=== PATIENT | female | born 1995 | race Caucasian/White ===

== ENCOUNTER → 2017-07-27 12:32 | Outpatient (CLI) | payer MEDICAID ==
[2017-07-27 13:42] LABS: BASOPHILS 0.1 % (0-2); EOSINOPHILS 0.9 % (0-7); HEMATOCRIT 29.7 % (36.0-48.0); HEMOGLOBIN 9.6 g/dL (12-16); IMMATURE GRANULOCYTES 0.6 % (0-5); LYMPHOCYTES 5.3 % (15-50); MCH 26.2 pg (26.0-34.0); MCHC 32.3 g/dL (31.0-37.0); MCV 81.1 fL (80.0-100.0); MEAN PLATELET VOLUME 10.3 fL (7.4-10.4); NEUTROPHILS 84.1 % (40-80); PLATELET COUNT 181 10x3/uL (130-400); RBC 3.66 10x6/uL (4.00-5.40); RDW 13.3 % (11.5-14.5); WBC 8.9 10x3/uL (4.8-10.8)
== END | disposition home or self-care (01) ==
LOC: D.LDO 12:32
PROVIDERS: Obstetrics & Gynecology
DX: O26.892 Other specified pregnancy related conditions, second trimester (principal); Z3A.25 25 weeks gestation of pregnancy; R42 Dizziness and giddiness; R11.0 Nausea

== ENCOUNTER 2017-07-28 17:39 | Outpatient (CLI) | payer MEDICAID ==
[2017-07-28 18:54] LABS: APPEARANCE HAZY (CLEAR); BILIRUBIN NEGATIVE (NEGATIVE); COLOR YELLOW (YELLOW); GLUCOSE NEGATIVE (NEGATIVE); KETONE NEGATIVE (NEGATIVE); NITRITE NEGATIVE (NEGATIVE); PROTEIN NEGATIVE (NEGATIVE); UROBILINOGEN NORMAL (NORMAL)
[2017-07-28 18:55] LABS: RED CELLS - URINE OCC /hpf (0-5); WHITE CELLS - URINE 0-5 /hpf (0-5)
[2017-07-28 18:56] LABS: BACTERIA MANY /hpf (NONE SEEN); MUCUS <1+ /lpf (NONE SEEN)
== END 2017-07-28 19:35 | disposition home or self-care (01) ==
LOC: D.LDO 17:39
PROVIDERS: Obstetrics & Gynecology
DX: O26.892 Other specified pregnancy related conditions, second trimester (principal); Z3A.24 24 weeks gestation of pregnancy

== ENCOUNTER 2017-10-31 09:03 | Inpatient (IN) | payer MEDICAID ==
[~2017-10-31] VITALS: Ht 149.9 cm; Wt 64.4 kg
--- NOTE | ~2017-10-31 | OP ---
PATIENT NAME: CHRIS REEDER MEDICAL RECORD: [id number] :89 LOCATION:[facility] ADMISSION DATE:10/31/17 SURGEON: ANTHONY GLEASON MD DATE OF OPERATION: 11/02/2017 DELIVERY NOTE PREDELIVERY DIAGNOSIS: at term. POSTDELIVERY DIAGNOSIS: Mother delivered at term. PROCEDURE PERFORMED: Induction of labor with vaginal delivery. ATTENDING: Anthony Gleason MD ANESTHESIA: Continuous lumbar epidural. FINDINGS: Viable male in NEAL presentation, Apgars 9 and 9, weight 7 pounds 8 ounces. First degree laceration with 3-0 chromic repair. Placenta spontaneous and intact. ESTIMATED BLOOD LOSS: 400 cc. DISPOSITION: Mother and recovered in the room. TRANSINT:[id number] Voice Confirmation ID: [id number] DOCUMENT ID: [id number] ANTHONY GLEASON MD at 1158 CC: [id number] DICTATION DATE: 11/02/172014 [employer]: 11/02/17 2246 DIS IN 11/03/17 [facility] [address] [place] [address]
--- NOTE | ~2017-10-31 | DS ---
PATIENT:CHRIS REEDER :89 MEDICAL RECORD: [id number] DISCHARGE SUMMARY ADMISSION DATE: 10/31/17 DISCHARGE DATE: 11/03/17 DATE OF ADMISSION: 10/31/2017. DATE OF DISCHARGE: 11/03/2017. ADMISSION DIAGNOSIS: at term. DISCHARGE DIAGNOSIS: Mother delivered at term. PROCEDURE: Induction of labor with vaginal delivery. ATTENDING: Xavi Islas MD HISTORY OF PRESENT ILLNESS: See the H&P in the chart. SUMMARY OF HOSPITALIZATION: The patient was admitted to the hospital and underwent induction of labor. After initial day of Pitocin, it was stopped. The patient was redosed with misoprostol. On the second day of Pitocin, she went on to deliver vaginally. The patient has done well with minimal lochia and has adequate pain control at discharge. The patient has been counseled and is currently and will be using condoms for control at this time. The patient will follow up in 6 weeks. TRANSINT:[id number] Voice Confirmation ID: [id number] DOCUMENT ID: [id number] XAVI ISLAS MD at 1158 CC: [id number] DICTATION DATE: 11/03/17 1513 [employer]: 11/04/17 1056 DIS IN 11/03/17 [facility] [address] [place] [address]
[2017-10-31] MEDS ORDERED: PRENATAL COMPLE1 TAB PO (20:19)
[2017-10-31] MEDS ORDERED: FERGON 240 MG240 MG PO (20:20)
[2017-10-31 20:21] VITALS: BP 112/72; Ht 149.9 cm; Wt 64.4 kg
[2017-10-31 21:09] LABS: HEMATOCRIT 33.8 % (36.0-48.0); MCH 25.4 pg (26.0-34.0); MCHC 32.5 g/dL (31.0-37.0); MCV 78.1 fL (80.0-100.0); MEAN PLATELET VOLUME 11.1 fL (7.4-10.4); RBC 4.33 10x6/uL (4.00-5.40); RDW 16.9 % (11.5-14.5); WBC 8.5 10x3/uL (4.8-10.8)
[2017-10-31 21:36] LABS: APPEARANCE CLEAR (CLEAR); BILIRUBIN NEGATIVE (NEGATIVE); COLOR YELLOW (YELLOW); GLUCOSE NEGATIVE (NEGATIVE); KETONE NEGATIVE (NEGATIVE); NITRITE NEGATIVE (NEGATIVE); PROTEIN NEGATIVE (NEGATIVE); SPECIFIC GRAVITY 1.015 (1.005-1.020); UROBILINOGEN NORMAL (NORMAL)
[2017-11-02 07:25] LABS: RAPID PLASMA REAGIN Non Reactive (Non Reactive)
[2017-11-02 22:43] VITALS: BP 102/62
[2017-11-03 08:32] VITALS: BP 109/68
== END 2017-11-03 19:22 | disposition home or self-care (01) | DRG 775 ==
LOC: D.LD 09:03 → D.WS 19:49
PROVIDERS: Obstetrics & Gynecology
PROC: 10E0XZZ Delivery of Products of Conception, External Approach (ICD-10-PCS; principal; 2017-11-02)
PROC: 10907ZC Drainage of Amniotic Fluid, Therapeutic from Products of Conception, Via Natural or Artificial Opening (ICD-10-PCS; 2017-11-02)
PROC: 3E033VJ Introduction of Other Hormone into Peripheral Vein, Percutaneous Approach (ICD-10-PCS; 2017-11-02)
DX: O70.0 First degree perineal laceration during delivery (principal); Z3A.39 39 weeks gestation of pregnancy; Z37.0 Single live birth

== ENCOUNTER 2017-12-30 21:57 | Emergency (ER) | payer MEDICAID ==
[~2017-12-30] VITALS: Ht 149.9 cm; Wt 54.5 kg
[~2017-12-30 21:57] MED LIST: FERGON 240 MG240 MG PO; PRENATAL COMPLE1 TAB PO
[2017-12-30 22:12] VITALS: Ht 149.9 cm; Wt 54.5 kg
[2017-12-30 22:42] LABS: BASOPHILS 0.5 % (0-2); EOSINOPHILS 4.4 % (0-7); HEMATOCRIT 36.7 % (36.0-48.0); HEMOGLOBIN 12.1 g/dL (12-16); IMMATURE GRANULOCYTES 0.2 % (0-5); LYMPHOCYTES 43.1 % (15-50); MCH 26.7 pg (26.0-34.0); MEAN PLATELET VOLUME 10.4 fL (7.4-10.4); MONOCYTES 9.8 % (2-11); PLATELET COUNT 213 10x3/uL (130-400); RBC 4.53 10x6/uL (4.00-5.40); RDW 15.2 % (11.5-14.5); WBC 6.3 10x3/uL (4.8-10.8)
[2017-12-30 22:51] LABS: INR 0.91 (0.85-1.17); PROTIME 11.9 SECONDS (11.6-15.0)
[2017-12-30 22:52] LABS: APTT 29.3 SECONDS (22.8-39.4)
[2017-12-30 22:53] LABS: D-DIMER-QUANTITATIVE < 0.27 ug/mLFEU (0.20-0.54)
[2017-12-30 23:00] VITALS: BP 119/78
[2017-12-30 23:06] LABS: ALBUMIN 3.3 g/dL (3.4-5.0); ALKALINE PHOSPHATASE 101 U/L (46-116); ALT (SGPT) 38 U/L (10-68); BILIRUBIN - TOTAL 0.25 mg/dL (0.2-1.3); CALC OSMOLALITY 275 mosm/kg (275-300); CALCIUM 8.7 mg/dL (8.5-10.1); CARBON DIOXIDE 25.4 mmol/L (21.0-32.0); CHLORIDE - SERUM 100 mmol/L (98-107); CREATININE - SERUM 0.6 mg/dL (0.6-1.3); GLUCOSE 91 mg/dL (74-106); PROTEIN - SERUM 6.9 g/dL (6.4-8.2); SODIUM 137 mmol/L (136-145); UREA NITROGEN 17 mg/dL (7-18); eGFR NON AFRICAN AMERICAN > 90 mL/min (90-120)
[2017-12-30 23:17] LABS: CKMB 1.1 U/L (0.0-3.6); CREATINE KINASE 135 UL (21-215); MAGNESIUM - SERUM 1.9 mg/dL (1.8-2.4); PRO BNP 72 pg/mL (0-125)
[2017-12-30 23:19] LABS: TROPONIN-I < 0.017 ng/mL (0.000-0.060)
== END 2017-12-31 01:41 | disposition home or self-care (01) ==
LOC: D.ER 21:57
PROVIDERS: Family Medicine
DX: R00.2 Palpitations (principal); I49.3 Ventricular premature depolarization

== ENCOUNTER → 2019-12-05 16:53 | Outpatient (CLI) | payer MEDICAID ==
[2017-12-30 22:12] VITALS: BMI 24.3
== END | disposition home or self-care (01) ==
LOC: D.LABREF 16:53
PROVIDERS: ATTEND Pediatrics
DX: R30.9 Painful micturition, unspecified (principal)